=== PATIENT | male | born 1975 | race Caucasian/White ===

== ENCOUNTER 2017-07-22 22:48 | Emergency (ER) | payer MEDICAID ==
[2017-07-22 22:57] VITALS: BP 155/90; PULSE 76; RESP 16; TEMP 97.7; O2SAT 99
--- NOTE | 2017-07-22 23:32 | EDPHY ---
General Time Seen by Provider: 07/22/17 23:20 Narrative: CHIEF COMPLAINT: Rash HISTORY OF PRESENT ILLNESS: Patient complains of rash to both arms. He 1st noticed this several days ago. It was mild at 1st but now moderate to severe. It is mildly pruritic at times. Nonpainful. Nonbleeding. No fever. No rash to the face, neck, or back. There is some involvement of the abdomen. No involvement of the knee. No new known exposures. He has attempted to "deep cleanse" and has applied topical aloe. No improvement. No worsening. No other associated complaints or modifying factors. REVIEW OF SYSTEMS: Ten systems reviewed and are negative unless otherwise noted in the HPI PCP: None SPECIALISTS: None PAST MEDICAL HISTORY: None PAST SURGICAL HISTORY: None SOCIAL HISTORY: Nonsmoker. 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 Airway is widely patent Respiratory: No retractions or distress Skin: Warm and dry. Diffuse dermatitis to the posterior aspects of bilateral upper extremities, both the forearm and brachium. This is a plaque type rash with scales consistent with psoriasis. No petechiae or purpura Extremities: Nontender, no pedal edema. Symmetric range of motion. Psychiatric: Mood and affect normal DIFFERENTIAL DIAGNOSES: Including but not limited to acute dermatitis,, dermatitis, eczema, psoriasis MDM: 11:20 p.m. Acute dermatitis of bilateral upper extremities that is consistent with psoriasis. He has no arthralgia or signs of systemic illness. Vital signs are within normal limits. No petechiae or purpura. No signs of infection. I will treat him with topical triamcinolone 3 times daily. We discuss follow-up with dermatology. We discussed follow up with primary care physician, and I will provide the on-call information for him. We discussed oral antihistamines over- the-counter. We discussed ED precautions. He is comfortable this plan and discharged home stable condition. SUPERVISION: This patient was independently evaluated without direct involvement of or examination by the attending physician. - History Smoking Status: Never smoked - Objective Vital Signs: Initial Vital Signs Temperature (C) 97.7 F 07/22/17 22:55 Heart Rate 76 07/22/17 22:55 Respiratory Rate 16 07/22/17 22:55 Blood Pressure 155/90 H 07/22/17 22:55 O2 Sat (%) 99 07/22/17 22:55 O2 Delivery Mode Room Air Allergies/Adverse Reactions: No Known Allergies Allergy (Unverified 07/22/17 22:54) Home Medications: Medication Instructions Recorded Triamcinolone 0.1% [Triamcinolone 1 ofelia TP TID #1 cream 07/22/17 0.1% Cream] Departure - Departure Disposition: Home, Routine, Self-Care Clinical Impression: Acute dermatitis Condition: Good Instructions: Psoriasis (ED), Dermatitis (ED) Additional Instructions: 1. Triamcinolone topical 3 times daily as prescribed 2. Follow up with Dermatology for definitive care 3. ED precautions as discussed Referrals: NONE *PRIMARY CARE P,. [Primary Care Provider] - As per Instructions Prescriptions: Triamcinolone 0.1% [Triamcinolone 0.1% Cream] 1 ofelia TP TID #1 cream
[2017-07-23] MEDS ORDERED: TRIAMCINOLONE 0.1% 15 GM CRTUBE TP SCH (09:00)
== END 2017-07-22 23:55 | disposition home or self-care (01) ==
DX: L30.9 Dermatitis, unspecified (principal)